=== PATIENT | female | born 1960 | race Hispanic/Latino ===

== ENCOUNTER 2021-11-21 04:35 | Observation (INO) | payer SELFPAY ==
[~2021-11-21] VITALS: Ht 152.4 cm; Wt 81.6 kg
[2021-11-21] MEDS ORDERED: ONDANSETRON HCL INJ 2MG/ML 2ML 2 MG/ML VIAL IV STA (05:09)
[2021-11-21 05:14] LABS: BASOPHILS % 0.3 % (0.0-1.0); EOSINOPHILS # (AUTO) 0.1 (0.0-0.4); EOSINOPHILS % 0.6 % (0.0-6.0); HEMATOCRIT 40.6 % (34.2-44.1); HEMOGLOBIN 13.7 g/dL (12.0-16.0); LYMPHOCYTES # (AUTO) 1.4 (1.0-3.2); LYMPHOCYTES % 14.7 % (18.0-39.1); MEAN CORPUSCULAR HEMOGLOBIN 29.5 pg (28-32); MEAN CORPUSCULAR HGB CONC 33.7 g/dL (31-35); MEAN CORPUSCULAR VOLUME 87.3 fL (81-99); MONOCYTES # (AUTO) 0.6 (0.2-0.8); MONOCYTES % 6.1 % (4.4-11.3); NEUTROPHILS # (AUTO) 7.3 (2.1-6.9); PLATELET COUNT 240 x10e3/uL (140-360); RED BLOOD COUNT 4.65 x10e6/uL (3.6-5.1); RED CELL DISTRIBUTION WIDTH 11.7 % (11.7-14.4)
[2021-11-21] MEDS ORDERED: FENTANYL CITRATE/PF 100MCG/2 ML INJ IV PRN (05:15)
[2021-11-21] MEDS ORDERED: SODIUM CHLORIDE 0.9% 1000ML 1,000 ML IV SCH ×2 (05:15→09:00)
[2021-11-21 05:27] LABS: ALBUMIN 4.1 g/dL (3.5-5.0); ALBUMIN/GLOBULIN RATIO 1.1 (0.8-2.0); ANION GAP 18.2 mmol/L (8-16); CALCIUM 9.2 mg/dL (8.4-10.2); CREATININE, SERUM 0.81 mg/dL (0.57-1.11); POTASSIUM 4.2 mmol/L (3.5-5.1)
[2021-11-21 06:07] LABS: CLARITY,URINE CLEAR (CLEAR); COLOR,URINE YELLOW (YELLOW); KETONES,URINE NEGATIVE (NEGATIVE); LEUKOCYTE ESTERASE ,URINE NEGATIVE (NEGATIVE); NITRITE,URINE NEGATIVE (NEGATIVE); PROTEIN,URINE DIPSTICK NEGATIVE (NEGATIVE); URINE UROBILINOGEN 0.2 mg/dL (0.2 - 1)
[2021-11-21 06:28] LABS: BACTERIA,URINE RARE /HPF; EPITHELIAL CELLS,URINE FEW /LPF; WBC,URINE (MAN) 0-5 /HPF (0-5)
[2021-11-21] MEDS ORDERED: METRONIDAZOLE 500MG/NS 100ML 100 ML IV STA (08:29)
[2021-11-21] MEDS ORDERED: LACTATED RINGER'S 1,000 ML INJ ONE (09:00)
[2021-11-21] MEDS ORDERED: Morphine 4mg INJECTION 4 MG/ML INJ IV PRN (09:00)
[2021-11-21] MEDS: ONDANSETRON HCL INJ 2MG/ML 2ML 2 MG/ML VIAL IV PRN (10:42)
[2021-11-21 11:52] LABS: INR 0.87; PROTHROMBIN TIME 12.6 seconds (11.9-14.5)
[2021-11-21] MEDS ORDERED: DEXAMETHASONE SOD PHOS INJ 4 MG/ML SDV ONE (12:41)
[2021-11-21] MEDS ORDERED: LIDOCAINE HCL 2% LOCAL INJ 5 ML SDV VIAL INJ ONE (12:41)
[2021-11-21] MEDS ORDERED: KETOROLAC TROMETHAMINE 30 MG/ML VIAL ONE (12:41)
[2021-11-21] MEDS ORDERED: SEVOFLURANE INHAL SOLN 250 ML PEN BTL ONE (12:41)
[2021-11-21] MEDS ORDERED: ACETAMINOPHEN 1000 MG/100 ML IV ONE (12:41)
[2021-11-21] MEDS ORDERED: PROPOFOL IV EMULSION 10 MG/ML 20 ML VIAL ONE (12:41)
[2021-11-21] MEDS ORDERED: ONDANSETRON HCL INJ 2MG/ML 2ML 2 MG/ML VIAL ONE (12:41)
[2021-11-21] MEDS ORDERED: ROCURONIUM BROMIDE 10 MG/ML 5ML VIAL IV ONE (12:41)
[2021-11-21] MEDS ORDERED: POVIDONE IODINE 0.05% 0.05 % ML PO ONE (12:41)
[2021-11-21] MEDS ORDERED: FENTANYL CITRATE/PF 100MCG/2 ML INJ ONE ×2 (12:52→15:48)
[2021-11-21] MEDS ORDERED: MIDAZOLAM HCL 2 MG/2 ML VIAL ONE (12:52)
[2021-11-21] MEDS ORDERED: BUPIVACAINE 0.25% 30ML SDV ONE (12:59)
[2021-11-21] MEDS ORDERED: HYDROMORPHONE 1MG/1ML INJ IV PRN (15:00)
[2021-11-21] MEDS ORDERED: KETOROLAC TROMETHAMINE 30 MG/ML VIAL IV PRN (15:00)
[2021-11-21 16:50] VITALS: BP 152/77
[2021-11-21 17:19] VITALS: BP 152/77
[2021-11-21 17:30] VITALS: BP 152/77
[2021-11-21] MEDS: SODIUM CHLORIDE 0.9% 1000ML 1,000 ML IV SCH (17:43)
[2021-11-21 20:46] VITALS: BP 172/88
[2021-11-21] MEDS: HYDROCODONE/APAP 7.5MG-325MG 1 EA TAB PO PRN (21:59)
[2021-11-22] VITALS: BP 153/84
[2021-11-22] MEDS: SODIUM CHLORIDE 0.9% 1000ML 1,000 ML IV SCH ×2 (02:41→11:24)
[2021-11-22 04:00] VITALS: BP 168/88
[2021-11-22] MEDS: HYDROCODONE/APAP 7.5MG-325MG 1 EA TAB PO PRN (04:48)
[2021-11-22 05:54] LABS: BASOPHILS % 0.3 % (0.0-1.0); HEMOGLOBIN 11.8 g/dL (12.0-16.0); MEAN CORPUSCULAR HEMOGLOBIN 29.1 pg (28-32); MEAN CORPUSCULAR HGB CONC 31.9 g/dL (31-35); MEAN CORPUSCULAR VOLUME 91.1 fL (81-99); MONOCYTES # (AUTO) 0.5 (0.2-0.8); MONOCYTES % 6.2 % (4.4-11.3); NEUTROPHILS % 81.3 % (38.7-80.0); PLATELET COUNT 178 x10e3/uL (140-360); RED BLOOD COUNT 4.06 x10e6/uL (3.6-5.1); RED CELL DISTRIBUTION WIDTH 11.8 % (11.7-14.4)
[2021-11-22 06:19] LABS: ANION GAP 18.2 mmol/L (8-16); CALCIUM 8.4 mg/dL (8.4-10.2); CREATININE, SERUM 0.6 mg/dL (0.57-1.11); POTASSIUM 4.2 mmol/L (3.5-5.1)
[2021-11-22 08:38] VITALS: BP 149/81
[2021-11-22 08:41] VITALS: BP 149/81
[2021-11-22] MEDS: ONDANSETRON HCL INJ 2MG/ML 2ML 2 MG/ML VIAL IV PRN (09:02)
[2021-11-22 12:13] VITALS: BP 153/83
[2021-11-22 16:56] VITALS: BP 151/85
== END 2021-11-22 18:32 | disposition home or self-care (01) ==
LOC: ER 04:44 → ERHOLD 08:52 → INTOOBSV 08:52 → PACU V 14:52 → MED/SURG3 15:58
PROVIDERS: ADMIT Surgery; ATTEND Surgery
DX: K80.00 Calculus of gallbladder with acute cholecystitis without obstruction (principal); Z20.822 Contact with and (suspected) exposure to COVID-19
CPT/HCPCS: 0223U; 36415 ×2; 47562; 76705; 80048; 80053; 81001; 83605; 83690; 84484; 85025 ×2; 85610; 87040; 88304; 93005; 94799 ×2; 99284; C1766; C9113; G0378 ×2; J0131; J0696 ×2; J1100; J1885; J2001; J2250; J2405 ×2; J2704; J3010; J7030 ×2; J7121